=== PATIENT | male | born 1945 | race Caucasian/White ===

== ENCOUNTER 2016-08-21 11:44 | Inpatient (IN) | payer OTHER, SELFPAY ==
[~2016-08-21] VITALS: Ht 182.9 cm; Wt 90.9 kg
[2016-08-21 12:09] LABS: HEMOGLOBIN 15.6 gm/dl (14.0-17.5); RED BLOOD COUNT 4.93 M/UL (4.20-5.50); WHITE BLOOD COUNT 8.4 K/UL (4.5-11.0)
[2016-08-21] MEDS ORDERED: ASPIRIN 325MG325 MG PO (21:03)
[2016-08-21] MEDS ORDERED: TOPROL XL 100100 MG PO (21:05)
[2016-08-21] MEDS ORDERED: FENOFIBRATE160 MG PO (21:05)
[2016-08-21] MEDS ORDERED: OMEPRAZOLE20 MG PO (21:06)
[2016-08-21] MEDS ORDERED: ALTACE10 MG PO (21:06)
[2016-08-21] MEDS ORDERED: FISH OIL300 MG PO (21:07)
[2016-08-22 06:57] LABS: HEMOGLOBIN 14.7 gm/dl (14.0-17.5); RED BLOOD COUNT 4.64 M/UL (4.20-5.50); WHITE BLOOD COUNT 9.3 K/UL (4.5-11.0)
[2016-08-22 18:30] LABS: HEMOGLOBIN 15.7 gm/dl (14.0-17.5); RED BLOOD COUNT 4.95 M/UL (4.20-5.50); WHITE BLOOD COUNT 9.7 K/UL (4.5-11.0)
[2016-08-23 03:59] LABS: HEMOGLOBIN 14.6 gm/dl (14.0-17.5); RED BLOOD COUNT 4.61 M/UL (4.20-5.50)
[2016-08-23] MEDS ORDERED: LIPITOR80 MG PO (13:05)
[2016-08-23] MEDS ORDERED: BRILINTA90 MG PO (13:11)
[2016-08-23] MEDS ORDERED: HABITROL 14 MG P1 EA TD (13:12)
[2016-08-23] MEDS ORDERED: TOPROL XL50 MG PO (13:37)
== END 2016-08-23 14:00 | disposition home or self-care (01) | DRG 246 ==
LOC: ER1 11:44 → PROG CARE 19:51 → ZEROF 19:51 → PROG CARE 20:45
PROVIDERS: Emergency Medicine; Internal Medicine; ADMIT Internal Medicine
PROC: 027035Z Dilation of Coronary Artery, One Artery with Two Drug-eluting Intraluminal Devices, Percutaneous Approach (ICD-10-PCS; principal; 2016-08-22)
PROC: 4A023N7 Measurement of Cardiac Sampling and Pressure, Left Heart, Percutaneous Approach (ICD-10-PCS; 2016-08-22)
PROC: B2111ZZ Fluoroscopy of Multiple Coronary Arteries using Low Osmolar Contrast (ICD-10-PCS; 2016-08-22)
PROC: B2151ZZ Fluoroscopy of Left Heart using Low Osmolar Contrast (ICD-10-PCS; 2016-08-22)
PROC: B2131ZZ Fluoroscopy of Multiple Coronary Artery Bypass Grafts using Low Osmolar Contrast (ICD-10-PCS; 2016-08-22)
DX: I21.4 Non-ST elevation (NSTEMI) myocardial infarction (principal); I25.42 Coronary artery dissection; N17.9 Acute kidney failure, unspecified; I10 Essential (primary) hypertension; F17.210 Nicotine dependence, cigarettes, uncomplicated; I25.110 Atherosclerotic heart disease of native coronary artery with unstable angina pectoris; E11.9 Type 2 diabetes mellitus without complications; E78.5 Hyperlipidemia, unspecified; Z82.49 Family history of ischemic heart disease and other diseases of the circulatory system
CPT/HCPCS: ECHO; 36415; 71010; 80048; 80053; 80061; 82550; 82553; 82570; 82962; 83036; 83735; 83874; 84156; 84484; 85025; 85027; 85347; 85610; 85730; 93005; 93306; 99285; C1725; C1769; C1874; C1887; C9600; J0583; J1644; J1650; J2250; J2550; J3010; J7030; J7040; J7050; Q9963

== ENCOUNTER → 2017-01-18 | Outpatient (CLI) | payer OTHER ==
[~2017-01-18] MED LIST: ALTACE10 MG PO; ASPIRIN 325MG325 MG PO; BRILINTA90 MG PO; FENOFIBRATE160 MG PO; FISH OIL300 MG PO; HABITROL 14 MG P1 EA TD; LIPITOR80 MG PO; OMEPRAZOLE20 MG PO; TOPROL XL 100100 MG PO; TOPROL XL50 MG PO
== END ==
LOC: KOH-I 12:39
DX: M25.532 Pain in left wrist (principal); M25.531 Pain in right wrist; M54.5 Low back pain; M25.551 Pain in right hip; M19.032 Primary osteoarthritis, left wrist; M51.36 Other intervertebral disc degeneration, lumbar region; M16.11 Unilateral primary osteoarthritis, right hip
CPT/HCPCS: 72110; 73110; 73502

== ENCOUNTER → 2020-06-25 | Outpatient (CLI) | payer MEDICARE, OTHER ==
[~2020-06-25] MED LIST changes: +ALTACE5 MG PO; -ASPIRIN 325MG325 MG PO; +ECOTRIN81 MG PO; +FLUZONE QU60 MCG/015 IM; +IMDUR ER TAB 3030 MG PO; +LEFLUNOMIDE10 MG PO; +LIPITOR40 MG PO; -LIPITOR80 MG PO; +PLAQUENIL 200200 MG PO; +PREDNISONE10 MG PO; +PROTONIX40 MG PO; +RANEXA1000 MG PO; +RANEXA500 MG PO
== END ==
LOC: EXRD 06-17 10:30
DX: M81.0 Age-related osteoporosis without current pathological fracture (principal)
CPT/HCPCS: 77080

== ENCOUNTER → 2021-03-25 | Outpatient (CLI) | payer MEDICARE | LOC: HEART 5 10:26 | DX: I25.10 Atherosclerotic heart disease of native coronary artery without angina pectoris (principal); I20.9 Angina pectoris, unspecified | CPT/HCPCS: 93306 ==

== ENCOUNTER 2021-09-14 14:49 | Inpatient (IN) | payer MEDICARE ==
[~2021-09-14] VITALS: Ht 182.9 cm; Wt 71.8 kg
[~2021-09-14 14:49] MED LIST changes: -IMDUR ER TAB 3030 MG PO; +ISOSORBIDE MONO60 MG PO
[2021-09-14 17:04] LABS: HEMOGLOBIN 11.7 gm/dl (14.0-17.5); RED BLOOD COUNT 3.64 M/UL (4.20-5.50); WHITE BLOOD COUNT 15.7 K/UL (4.5-11.0)
[2021-09-15 02:42] LABS: RED BLOOD COUNT 3.74 M/UL (4.20-5.50)
[2021-09-15 02:48] LABS: WHITE BLOOD COUNT 20.9 K/UL (4.5-11.0)
[2021-09-15] MEDS ORDERED: ENBREL50 MG/1 ML SQ (09:36)
[2021-09-15] MEDS ORDERED: NITROGLYCERIN0.4 MG SL (09:36)
[2021-09-15 12:43] LABS: ADENOVIRUS F 40/41 Not Detected (Negative); ASTROVIRUS Not Detected (Negative); CAMPYLOBACTER Not Detected (Negative); CRYPTOSPORIDIUM Not Detected (Negative); E.COLI 0157 Not Detected (Negative); ENTAMOEBA HISTOLYTICA Not Detected (Negative); ENTEROAGGREGATIVE E.COLI (EAEC Not Detected (Negative); ENTEROPATHOGENIC E.COLI (EPEC) Not Detected (Negative); ENTEROTOXIGENIC E.COLI (ETEC) Not Detected (Negative); GIARDIA LAMBLIA Not Detected (Negative); NOROVIRUS GI/GII Not Detected (Negative); PLESIOMONAS SHIGELLOIDES Not Detected (Negative); ROTOVIRUS A Not Detected (Negative); SALMONELLA Not Detected (Negative); SAPOVIRUS Not Detected (Negative); SHIG/ENTEROINVAS.ECOLI (EIEC) Not Detected (Negative); SHIGA-LIK TOX.PRO.E.COLI (STEC Not Detected (Negative); VIBRIO Not Detected (Negative); VIBRIO CHOLERAE Not Detected (Negative); YERSINIA ENTEROCOLITICA Not Detected (Negative)
[2021-09-15 15:15] LABS: CLOSTRIDIUM DIFFICILE TOX A/B Not Detected (Negative)
[2021-09-16 06:27] LABS: HEMOGLOBIN 11.5 gm/dl (14.0-17.5); RED BLOOD COUNT 3.63 M/UL (4.20-5.50)
[2021-09-16 06:32] LABS: WHITE BLOOD COUNT 9.2 K/UL (4.5-11.0)
--- NOTE | 2021-09-17 00:47 | NUR ---
PATIENT WALKED TO THE BATHROOM AT APPROXIMATELY 2100 AND UPON RETURNING TO BED, COMPLAINED OF CHEST PAIN AND SAID 'SOMETHING'S BAD WRONG'. WHEN MONITOR PUT BACK ON PATIENT, PATIENT WAS FOUND TO BE IN AFIB WITH A RATE OF 160'S. PHYSICIAN NOTIFIED, ORDERS OBTAINED. EKG REVEALED AFIB RVR. AFTER 2ND DOSE OF LOPRESSOR IV, PT CONVERTED BACK TO NSR WITH PVCS AT APPROX 2345. PT STATES HE FEELS MUCH BETTER AND IS RESTING IN BED WITH NO S/S DISTRESS AT THIS TIME.
--- NOTE | 2021-09-17 05:38 | NUR ---
PATIENT BLADDER SCANNED AT APPROXIMATELY 0400 AFTER URINATING. SCAN 1 SHOWED 56ML AND SCAN 2 SHOWED 94ML. PT STATES THE FLOMAX HE TOOK LAST NIGHT HELPED HIM VERY MUCH AND ASKED THAT HE BE ABLE TO GET A PRESCRIPTION OF FLOMAX WHEN HE GOES HOME. PT STATED HIS BLADDER FELT EMPTY AFTER URINATING.
[2021-09-17] MEDS ORDERED: METRONIDAZOLE500 MG PO (13:05)
[2021-09-17] MEDS ORDERED: CIPRO500 MG PO (13:05)
[2021-09-17] MEDS ORDERED: FLOMAX 0.4 MG0.4 MG PO (13:05)
[2021-09-17] MEDS ORDERED: ELIQUIS5 MG PO (13:19)
== END 2021-09-17 18:45 | disposition home or self-care (01) | DRG 871 ==
LOC: ER1 14:49 → PROG CARE 22:15 → CDU 22:15 → PROG CARE 09-15 00:58
PROVIDERS: Internal Medicine; Student in an Organized Health Care Education/Training Program; ADMIT Internal Medicine
PROC: 3E03329 Introduction of Other Anti-infective into Peripheral Vein, Percutaneous Approach (ICD-10-PCS; principal; 2021-09-14)
PROC: 3E043XZ Introduction of Vasopressor into Central Vein, Percutaneous Approach (ICD-10-PCS; 2021-09-14)
DX: A41.9 Sepsis, unspecified organism (principal); R65.21 Severe sepsis with septic shock; I21.A1 Myocardial infarction type 2; Z20.822 Contact with and (suspected) exposure to COVID-19; N17.9 Acute kidney failure, unspecified; E87.2 Acidosis; N30.01 Acute cystitis with hematuria; D84.9 Immunodeficiency, unspecified; E83.51 Hypocalcemia; I25.10 Atherosclerotic heart disease of native coronary artery without angina pectoris; E87.6 Hypokalemia; D69.6 Thrombocytopenia, unspecified; E78.5 Hyperlipidemia, unspecified; J44.9 Chronic obstructive pulmonary disease, unspecified; K21.9 Gastro-esophageal reflux disease without esophagitis; E86.0 Dehydration; M06.9 Rheumatoid arthritis, unspecified; I48.91 Unspecified atrial fibrillation; K52.9 Noninfective gastroenteritis and colitis, unspecified; E86.1 Hypovolemia; I12.9 Hypertensive chronic kidney disease with stage 1 through stage 4 chronic kidney disease, or unspecified chronic kidney disease; N18.30 Chronic kidney disease, stage 3 unspecified; Z79.01 Long term (current) use of anticoagulants; Z95.1 Presence of aortocoronary bypass graft; Z79.82 Long term (current) use of aspirin; Z95.5 Presence of coronary angioplasty implant and graft; Z87.891 Personal history of nicotine dependence; Z90.49 Acquired absence of other specified parts of digestive tract; Z82.49 Family history of ischemic heart disease and other diseases of the circulatory system; I25.2 Old myocardial infarction
CPT/HCPCS: 36415; 71250; 80053; 81001; 82550; 82553; 82803; 82962; 83036; 83605; 83735; 84132; 84484; 85025; 85027; 85610; 85652; 85730; 86140; 87040; 87086; 87507; 93005; 93270; 96374; 96375; 97116; 97116-GP-CQ; 97162; 97165; 99285; J1644; J2185; J3475; J7030; P9047; U0002

== ENCOUNTER → 2021-10-28 | Outpatient (CLI) | payer MEDICARE ==
[~2021-10-28] MED LIST changes: +CIPRO500 MG PO; +ELIQUIS5 MG PO; +ENBREL50 MG/1 ML SQ; +FLOMAX 0.4 MG0.4 MG PO; +METOPROLOL SUCC50 MG PO; +METRONIDAZOLE500 MG PO; +NITROGLYCERIN0.4 MG SL; +NITROSTAT 0.40.4 MG SL
== END ==
LOC: CATH 10-21 08:00 → EDSTATUS 08:00
DX: I48.0 Paroxysmal atrial fibrillation (principal); Z79.01 Long term (current) use of anticoagulants; Z79.82 Long term (current) use of aspirin; Z79.899 Other long term (current) drug therapy; Z53.8 Procedure and treatment not carried out for other reasons
CPT/HCPCS: 93005; J2250; J2310; J2370; J3010; J7040